=== PATIENT | female | born 1945 | race Caucasian/White ===

== ENCOUNTER → 2016-09-30 | Outpatient (CLI) | payer OTHER ==
[~2016-09-30] MED LIST: ACETAMINOPHEN PO; AMANTADINE HCL100 MG PO; AMANTADINE HCL25 GM MC; AMANTADINE100 M1 PO; AMIODARONE PO; ARAVA10 MG PO; ARICEPT PO; ARTANE2 M1 PO; ASPIRIN PO; ATIVAN PO; ATIVAN2 M1 PO; AZULFIDINE ENT500 MG PO; AZULFIDINE PO; BACITRACIN3.5 G1 OP; CARBIDOPA-1 UDTAB.S3 PO; CELEBREX PO; COMBIVENT U/D3 M2 INH; EVISTA60 MG PO; EXELON1.5 MG PO; FLAGYL PO; GLUCOTROL PO; GLUCOTROL2.5 MG/BOT PO; HYDROCODONE-APA1 T54 PO; KLONOPIN1 M1 PO; LANSOPRAZOLE15 MG PO; LEVAQUIN750 M1 PO; LISINOPRIL PO; LISINOPRIL10 MG PO; LORAZEPAM1 MG PO; LORTAB 7.5-5001 TAB PO; METHOTREXATE; MYLANTA GAS80 M1 PO; NORVASC10 MG PO; PAROXETINE HCL20 M1 PO; PREDNISONE10 MG PO; PREVACID PO; SINEMET-25/1001 TAB PO; SYNTHROID PO; THYROID PO; TIZANIDINE HCL4 M1 PO; TOPAMAX PO; VOLTAREN50 MG PO; ZANAFLEX PO; ZITHROMAX500 MG PO; ZYRTEC PO
--- NOTE | ~2016-09-30 | US85 ---
[facility] A Service of [facility] & [facility] RADIOLOGY TEXT RESULTS PATIENT: ERNESTO CERNA LOCATION: CNIV : 44 UNIT #: [id number] AGE: [address]: Frederic Diop MD SEX: F ORDER DR: [id number] [facility] [address] [place], [place] [address] [id number] O MR#: [id number] Acc #: [id number] NAME: ERNESTO CERNA : 1945 SEX: F STUDY DATE/TIME: 09/30/2016 15:07 UNIT: CNIV ROOM: STUDY DESCRIPTION: [facility] or [facility] St[facility] Attending Physician: Frederic Diop M.D. Referring Physician: Frederic Diop M.D. Ordering Physician: Frederic Diop M.D. Primary Care Physician: Gera Tripp M.D. MEDICAL IMAGING REPORT This report is preliminary unless electronic signature is present EXAM Right lower extremity venous duplex HISTORY Pain in right upper leg since Tuesday. FINDINGS There is phasic and spontaneous flow with respiration seen of the right common femoral, deep femoral, femoral, popliteal, anterior and posterior tibial, peritoneal and saphenous veins. There is compressibility of the vein lumen of all of the aforementioned vessels. IMPRESSION 1. There is no evidence of deep vein thrombosis of the right lower extremity on today's exam. Dictated by... Eduardo Alas M.D. THIS IS AN ELECTRONICALLY VERIFIED REPORT Eduardo Alas M.D. at 10/01/2016 8:44 AM NERI/gracia TD: 09/30/2016 22:51 JOB #: [id number] MEDICAL IMAGING REPORT Page 1 of 1 COPY
--- NOTE | ~2016-09-30 | CR151 ---
[facility] A Service of [facility] RADIOLOGY TEXT RESULTS PATIENT: ERNESTO CERNA LOCATION: CNIV : 44 UNIT #: [id number] AGE: [address]: Frederic Diop MD SEX: F ORDER DR: [id number] [place] [id number] [facility] [place], [place] [address] [id number] O MR#: [id number] Acc #: [id number] NAME: ERNESTO CERNA : 1945 SEX: F STUDY DATE/TIME: 09/30/2016 14:45 UNIT: CNIV ROOM: STUDY DESCRIPTION: CR Hip Min 2 Views Rt Attending Physician: Frederic Diop M.D. Referring Physician: Frederic Diop M.D. Ordering Physician: Frederic Diop M.D. Primary Care Physician: Grea Tripp M.D. MEDICAL IMAGING REPORT This report is preliminary unless electronic signature is present EXAM Right hip 09/30/2016 HISTORY 71-year-old female with right hip pain for 10 days. No known injury. History of rheumatoid arthritis and bilateral hip arthroplasties. COMPARISON Right hip 01/15/2016. FINDINGS Four views of the right hip demonstrate stable postoperative changes from total right hip arthroplasty. No evidence of hardware failure or loosening. No hip dislocation or periprosthetic fracture. Bony pelvis intact. Left hip arthroplasty is also noted. Sacrum and SI joints appear intact. Multilevel degenerative changes in the visualized lower lumbar spine. IMPRESSION Bilateral hip arthroplasties. No evidence of hardware failure or loosening. No periprosthetic fracture or dislocation. Dictated by... Tommy Lovett M.D. THIS IS AN ELECTRONICALLY VERIFIED REPORT Tommy Lovett M.D. at 10/04/2016 1:15 PM AUGUST/phoebe TD: 10/01/2016 10:27 JOB #: [id number] [facility] A Service of [facility] RADIOLOGY TEXT RESULTS PATIENT: ERNESTO CERNA [id number] UNIT #: [id number] AGE: [address]: Frederic Diop MD SEX: F ORDER DR: MEDICAL IMAGING REPORT Page 1 of 1 COPY
== END | disposition home or self-care (01) ==
LOC: CNIV 14:19
DX: M79.89 Other specified soft tissue disorders (principal); M79.651 Pain in right thigh; M25.551 Pain in right hip; Z96.643 Presence of artificial hip joint, bilateral
CPT/HCPCS: 73502; 93971